=== PATIENT | male | born 1950 ===

== ENCOUNTER 2018-05-08 10:20 | Emergency (ER) | payer MEDICARE ==
[2018-05-08] MEDS ORDERED: Lidocaine 1% w Epi 1:100,000 Inj INJ STA (11:25)
[2018-05-08] MEDS ORDERED: Tetanus/Diphtheria Toxoids 0.5 ml Syringe IM ONE ×2 (11:25→12:14)
[2018-05-08] MEDS ORDERED: Bacitracin 500 Units/gm Oint Foilpak UD TOP STA (11:25)
--- NOTE | 2018-05-08 11:27 | C.PDOC ---
History Of Present Illness 67 y/o male brought in by ambulance for evaluation of head trauma s/p unwitnessed fall on the street. Patient was found by EMS after fall, noted to have swelling and laceration to left forehead. Patient denies experiencing any dizziness, chest pain, SOB, or lightheadedness prior to fall. States he just fell, no LOC. History is limited secondary to patient's PMHx of dementia. Patient's daughter is en route to the hospital. Via phone call, daughter reports that patient likes to take walks regularly and is always able to find his way home. Finger stick is 116 on arrival. - HPI Time Seen by Provider: 05/08/18 10:45 Chief Complaint (Nursing): Trauma History Per: Patient History/Exam Limitations: other (Hx of dementia) Onset/Duration Of Symptoms: Mins Injury Occurred (Timing): Just Before Arrival Location Of Injury: Left: Head Past Medical History Reviewed: Historical Data, Nursing Documentation, Vital Signs Vital Signs: Last Vital Signs Temp 97.7 F 05/08/18 10:40 Pulse 96 H 05/08/18 10:40 Resp 20 05/08/18 10:40 BP 127/83 05/08/18 10:40 Pulse Ox 99 05/08/18 10:40 - Medical History PMH: Dementia, Depression Denies: HIV, Chronic Kidney Disease - [facility] Procedures INTRODUCTION OF SERUM/TOX/VACCINE INTO MUSCLE, PERC APPROACH (11/20/17) REPAIR FACE SKIN, EXTERNAL APPROACH (11/20/17) REPOSITION RIGHT ULNA, EXTERNAL APPROACH (11/20/17) Family History: States: Unknown Family Hx - Social History Hx Alcohol Use: No Hx Substance Use: No Review Of Systems Except As Marked, All Systems Reviewed And Found Negative. Constitutional: Negative for: Fever Eyes: Negative for: Vision Change Cardiovascular: Negative for: Chest Pain, Palpitations Respiratory: Negative for: Shortness of Breath Gastrointestinal: Negative for: Nausea, Vomiting Skin: Positive for: Lesions (to left eyebrow) Neurological: Positive for: Other (+ Head trauma, fall). Negative for: Weakness, Numbness, Change in Speech, Dizziness Physical Exam - Physical Exam Appears: Non-toxic, No Acute Distress Skin: Warm, Dry Head: Normacephalic, Swelling (moderate swelling to left lateral cheek/forehead), Abrasion (to left lateral cheek), Laceration (Irregular laceration to left eyebrow) Eye(s): bilateral: Normal Inspection (no nystagmus), PERRL, EOMI Ear(s): Bilateral: Normal (no hemotympanum) Oral Mucosa: Moist Neck: Normal ROM, Supple Chest: Symmetrical Cardiovascular: Rhythm Regular, No Murmur Respiratory: Normal Breath Sounds, No Accessory Muscle Use Gastrointestinal/Abdominal: Soft, No Tenderness, No Distention Back: No Vertebral Tenderness Extremity: Bilateral: Atraumatic, Normal Color And Temperature Neurological/Psych: Normal Speech, Other (Alert, Awake, responding appropriately to questions) ED Course And Treatment O2 Sat by Pulse Oximetry: 99 (RA) Pulse Ox Interpretation: Normal - CT Scan/US CT Head Other Rad Studies (CT/US): Read By Radiologist, Radiology Report Reviewed CT/US Interpretation: Accession No. : [id number]. Patient Name / ID : DENA KELLEY / [id number]. Exam Date : 05/08/2018 11:43:56 ( Approved ). Study Comment : Sex / Age : M / 67Y. Creator : Sherrie Urena. Dictator : Yee Banuelos MD. Stone Driller Helper : Webbing Weaver : Yee Banuelos MD. Approver2 : Report Date : 05/08/2018 11:56:19. My Comment : . Date of service: 05/08/2018. PROCEDURE: CT HEAD WITHOUT CONTRAST. HISTORY: fall. COMPARISON: None available. TECHNIQUE: Axial computed tomography images were obtained through the head/brain without intravenous contrast. Radiation dose: Total exam DLP = 980.9 mGy-cm. This CT exam was performed using one or more of the following dose reduction techniques: Automated exposure control, adjustment of the mA and/or kV according to patient size, and/or use of iterative reconstruction technique. FINDINGS: HEMORRHAGE: No intracranial hemorrhage. BRAIN: Diffuse atrophy with prominence of the ventricles and sulci noted. No mass effect or edema. Intracranial atherosclerosis. Scattered periventricular and subcortical white matter hypodensities, which are nonspecific, but often seen with chronic microvascular ischemic disease. 4 mm left basal ganglia lacunar type infarct. Please note that MRI with diffusion imaging is more sensitive in the detection of acute ischemic event. VENTRICLES: No hydrocephalus. CALVARIUM: Unremarkable. PARANASAL SINUSES: Unremarkable as visualized. No significant inflammatory changes. MASTOID AIR CELLS: Unremarkable as visualized. No inflammatory changes. OTHER FINDINGS: Left preseptal soft tissue swelling. IMPRESSION: Left preseptal soft tissue swelling. Generalized atrophy. Nonspecific white matter changes. 4 mm left basal ganglia lacunar type infarct. CT Orbits/Facials Other Rad Studies (CT/US): Read By Radiologist, Radiology Report Reviewed CT/US Interpretation: Accession No. : [id number]. Patient Name / ID : DENA KELLEY / [id number]. Exam Date : 05/08/2018 11:47:44 ( Approved ). Study Comment : Sex / Age : M / 67Y. Creator : Sherrie Urena. Dictator : Yee Banuelos MD. Stone Driller Helper : Webbing Weaver : Yee Banuelos MD. Approver2 : Report Date : 05/08/2018 11:56:25. My Comment : . Date of service: 2018-05-08 11:47:44. CT orbits without IV contrast. Indication: fall. Comparison: Noncontrast head CT performed the same day. Technique: Axial computed tomography images were obtained of the orbits without the use of intravenous contrast. Coronal and sagittal reformatted images were generated and reviewed. This CT exam was performed using 1 or more of the following dose reduction techniques: Automated exposure control, adjustment of the MAA and/or kV according to patient size, and/or use of iterative reconstruction technique. Radiation dose: Total exam DLP = 625.35 mGy-cm. Findings: Left preseptal and facial soft tissue swelling. The facial bones appear unremarkable and without acute displaced fracture. The orbits appear unremarkable. The temporomandibular joints appear located. The mastoid air cells appear clear. Next mucosal polyp/cyst, right maxillary sinus. Minimal mucosal thickening in left maxillary sinus and ethmoid air cells. The remainder of the paranasal sinuses appear clear. The visualized brain appears unremarkable. Impression: Left preseptal and facial soft tissue swelling. No acute displaced fracture identified. Progress Note: Tetanus booster given. Pending CT Head and Orbits/Facials to rule out fracture or intracranial abnormality. 1% Lido w/ epi ordered for laceration repair. Laceration repaired without difficulty by me, bacitracin and sterile dressing applied. Tolerated well by patient. Patient's daughter is at bedside, and feels comfortable taking him home. Laceration - Laceration Repair L eyebrow Wound Length (In cm): 4 Description Of Wound: Irregular, Contused Tissue Wound Cleansed With: Betadine, Sterile Saline Anesthesia: Lidocaine 1%, With Epi Wound Examination: Irrigated With Saline, No FB With Wound Exploration Wound Debridement/Revision: Wound Margins Revised (Trimmed edges, debrided) Wound Closure: Suture (x8) Suture Technique And Material Used: Nylon (4:0) Wound Complexity: Intermediate Disposition - Disposition Disposition: HOME/ ROUTINE Disposition Time: 15:13 Condition: IMPROVED Additional Instructions: Follow up with your PMD within 1-2 days. Return to ED if feel worse. Prescriptions: Bacitracin OINT 1 applic TP TID #45 g Cephalexin [Keflex] 500 mg PO Q6 #28 cap Instructions: Laceration Repair With Stitches (DC), Taking Care of Bruises, Minor Head Injury (DC), Contusion (DC) Forms: Jeeran (Syriac) - Clinical Impression Clinical Impression: Contusion of face, Fall, Facial laceration, Minor head injury - PA / [employer] / Resident Statement MD/DO has reviewed & agrees with the documentation as recorded. - Scribe Statement The provider has reviewed the documentation as recorded by the Scribrivka Bucio All medical record entries made by the Scribe were at my direction and personally dictated by me. I have reviewed the chart and agree that the record accurately reflects my personal performance of the history, physical exam, me dical decision making, and the department course for this patient. I have also personally directed, reviewed, and agree with the discharge instructions and disposition.
--- NOTE | 2018-05-08 12:05 | CT ---
Date of service: 05/08/2018 PROCEDURE: CT HEAD WITHOUT CONTRAST. HISTORY: fall COMPARISON: None available. TECHNIQUE: Axial computed tomography images were obtained through the head/brain without intravenous contrast. Radiation dose: Total exam DLP = 980.9 mGy-cm. This CT exam was performed using one or more of the following dose reduction techniques: Automated exposure control, adjustment of the mA and/or kV according to patient size, and/or use of iterative reconstruction technique. FINDINGS: HEMORRHAGE: No intracranial hemorrhage. BRAIN: Diffuse atrophy with prominence of the ventricles and sulci noted. No mass effect or edema. Intracranial atherosclerosis. Scattered periventricular and subcortical white matter hypodensities, which are nonspecific, but often seen with chronic microvascular ischemic disease. 4 mm left basal ganglia lacunar type infarct. Please note that MRI with diffusion imaging is more sensitive in the detection of acute ischemic event. VENTRICLES: No hydrocephalus. CALVARIUM: Unremarkable. PARANASAL SINUSES: Unremarkable as visualized. No significant inflammatory changes. MASTOID AIR CELLS: Unremarkable as visualized. No inflammatory changes. OTHER FINDINGS: Left preseptal soft tissue swelling. IMPRESSION: Left preseptal soft tissue swelling. Generalized atrophy. Nonspecific white matter changes. 4 mm left basal ganglia lacunar type infarct.
[2018-05-08] MEDS ORDERED: Bacitracin 500 Units/gm Oint Foilpak UD ONE (12:10)
--- NOTE | 2018-05-08 12:20 | CT ---
Date of service: 2018-05-08 11:47:44 CT orbits without IV contrast Indication: fall Comparison: Noncontrast head CT performed the same day. Technique: Axial computed tomography images were obtained of the orbits without the use of intravenous contrast. Coronal and sagittal reformatted images were generated and reviewed. This CT exam was performed using 1 or more of the following dose reduction techniques: Automated exposure control, adjustment of the MAA and/or kV according to patient size, and/or use of iterative reconstruction technique. Radiation dose: Total exam DLP = 625.35 mGy-cm. Findings: Left preseptal and facial soft tissue swelling. The facial bones appear unremarkable and without acute displaced fracture. The orbits appear unremarkable. The temporomandibular joints appear located. The mastoid air cells appear clear. Next mucosal polyp/cyst, right maxillary sinus. Minimal mucosal thickening in left maxillary sinus and ethmoid air cells. The remainder of the paranasal sinuses appear clear. The visualized brain appears unremarkable. Impression: Left preseptal and facial soft tissue swelling. No acute displaced fracture identified.
[2018-05-08 15:37] VITALS: BP 107/70; PULSE 85; RESP 18; TEMP 97.8
[2018-05-09 13:06] VITALS: O2SAT 99
== END 2018-05-08 16:35 | disposition home or self-care (01) ==
LOC: C.ER 10:20
DX: S01.112A Laceration without foreign body of left eyelid and periocular area, initial encounter (principal); W18.30XA Fall on same level, unspecified, initial encounter; Y92.410 Unspecified street and highway as the place of occurrence of the external cause